=== PATIENT | female | born 1990 | race Caucasian/White ===

== ENCOUNTER 2016-12-19 19:33 | Emergency (ER) | payer MEDICAID ==
[2016-12-19 19:42] VITALS: BP 137/88; PULSE 149; RESP 16; O2SAT 98
[2016-12-19] MEDS ORDERED: Penicillin G Benzathine 1.2 Mill Unit/2 ml Syr IM STA (19:48)
--- NOTE | 2016-12-19 20:01 | ED PDOC ---
HPI: CCC, URI, Sore Throat Time Seen by Provider: 12/19/16 19:47 Chief Complaint (Nursing): ENT Problem Chief Complaint (Provider): sore thoart History Per: Patient History/Exam Limitations: no limitations Associated Symptoms: Fever, Chills, Sore Throat, Myalgias. denies: Cough, Sputum, Neck Pain, Sinus Drainage, Nasal Congestion, Nausea, Vomiting, Diarrhea Additional Complaint(s): 26yo F in Ed for eval of sore throat x 2d with fever body aches . hx of strep. no foreign travel no sick contacts. Past Medical History Reviewed: Historical Data, Nursing Documentation, Vital Signs Vital Signs: Last Vital Signs Temp 102 F H 12/19/16 19:40 Pulse 149 H 12/19/16 19:40 Resp 16 12/19/16 19:40 BP 137/88 12/19/16 19:40 Pulse Ox 98 12/19/16 20:03 - Medical History PMH: No Chronic Diseases - Family History Family History: States: Unknown Family Hx - Social History Current smoker - smoking cessation education provided: No Ex-Smoker (has not smoked in the last 12 months): No Alcohol: None Drugs: Denies - Immunization History Hx Tetanus Toxoid Vaccination: Yes Hx Influenza Vaccination: Yes Hx Pneumococcal Vaccination: Yes - Home Medications Home Medications: Ambulatory Orders Medication Instructions Recorded Ibuprofen [Motrin Tab] 600 mg PO TID #20 tab 03/16/14 Sulfamethoxazole/Trimethopri 1 tab PO BID #14 tab 03/16/14 [Bactrim Ds 800 mg-160 mg] - Allergies Allergies/Adverse Reactions: Allergies Allergy/AdvReac Type Severity Reaction Status Date / Time No Known Allergies Allergy Verified 12/19/16 19:40 Review of Systems ROS Statement: Except As Marked, All Systems Reviewed And Found Negative ENT: Positive for: Throat Pain, Throat Swelling Physical Exam - Reviewed Nursing Documentation Reviewed: Yes Vital Signs Reviewed: Yes - Physical Exam Head Exam: Positive for: ATRAUMATIC, NORMAL INSPECTION, NORMOCEPHALIC Skin: Positive for: Normal Color, Warm, Dry ENT: Positive for: Pharyngeal Erythema, Tonsillar Exudate, Tonsillar Swelling Neck: Positive for: Normal Cardiovascular/Chest: Positive for: Regular Rate, Rhythm Respiratory: Negative for: Accessory Muscle Use, Respiratory Distress Extremity: Positive for: Normal ROM Neurologic/Psych: Positive for: Alert, Oriented (x3) - ECG O2 Sat by Pulse Oximetry: 98 (RA) Pulse Ox Interpretation: Normal Medical Decision Making Medical Decision Making: Time: 20:00 Initial impression: Throat pain Initial plan: ED Urine Motrin 600 mg PO Toradol 30 mg IM Penicillin LR IM-pt with (+) [facility] Criteria for strep throat. ~ Scribe Attestation: Documented by Chanel Cabrera, acting as a scribe for MAIA Robles. Provider Scribe Attestation: All medical record entries made by the Scribe were at my direction and personally dictated by me. I have reviewed the chart and agree that the record accurately reflects my personal performance of the history, physical exam, medical decision making, and the department course for this patient. I have also personally directed, reviewed, and agree with the discharge instructions and disposition. Disposition - Clinical Impression Clinical Impression: Streptococcal sore throat - Patient ED Disposition Is Patient to be Admitted: No Counseled Patient/Family Regarding: Diagnosis, Need For Followup - Disposition Disposition: Routine/Home Disposition Time: 20:33 Condition: STABLE Instructions: Strep Throat (ED) Forms: [employer] (Dominican)
[2016-12-19 20:39] VITALS: TEMP 100.4
== END 2016-12-19 20:51 | disposition home or self-care (01) ==
LOC: H.ER 19:33
DX: J02.0 Streptococcal pharyngitis (principal)
CPT/HCPCS: 81025; 96372; 99282; J0561

== ENCOUNTER 2018-01-14 18:34 | Emergency (ER) | payer MEDICAID, OTHER ==
[2018-01-14 19:47] VITALS: BP 146/97; PULSE 100; RESP 17; TEMP 99.4; O2SAT 99
[2018-01-14] MEDS ORDERED: Dexamethasone 4 mg/1 ml IM ONE (20:23)
[2018-01-14] MEDS ORDERED: Dexamethasone 4 mg/1 ml ONE (20:39)
[2018-01-14] MEDS ORDERED: Penicillin G Benzathine 1.2 Mill Unit/2 ml Syr IM ONE (21:00)
--- NOTE | 2018-01-14 21:13 | ED PDOC ---
HPI: CCC, URI, Sore Throat Time Seen by Provider: 01/14/18 19:54 Chief Complaint (Nursing): ENT Problem Chief Complaint (Provider): ENT Problem History Per: Patient History/Exam Limitations: no limitations Onset/Duration Of Symptoms: Days (x6 days ) Current Symptoms Are (Timing): Still Present Additional Complaint(s): Evi Spears is a 27 year old female with a past medical history of recurrent strep pharyngitis, who presents to the emergency department today with severe throat pain, associated with left ear pain, onset x1 day. Patient states she began having a sore throat yesterday and took an old zithromycin and almost immediately had worsening pain. She also reports that she can not swallow and that if she is to be treated she does not want pills. Patient has been treated with penicillin IM in the past with improvement of her pain withing an hour. She denies having any fever, chills, night sweats, nasal congestion. PMD: shawn geronimo Past Medical History Reviewed: Historical Data, Nursing Documentation, Vital Signs Vital Signs: Last Vital Signs Temp 99.4 F 01/14/18 19:34 Pulse 100 H 01/14/18 19:34 Resp 17 01/14/18 19:34 BP 146/97 H 01/14/18 19:34 Pulse Ox 99 01/14/18 19:34 - Medical History PMH: No Chronic Diseases - Surgical History Surgical History: No Surg Hx - Family History Family History: States: Unknown Family Hx - Immunization History Hx Tetanus Toxoid Vaccination: Yes Hx Influenza Vaccination: Yes Hx Pneumococcal Vaccination: Yes - Home Medications Home Medications: Ambulatory Orders Medication Instructions Recorded Ibuprofen [Motrin Tab] 600 mg PO TID #20 tab 03/16/14 Sulfamethoxazole/Trimethopri 1 tab PO BID #14 tab 03/16/14 [Bactrim Ds 800 mg-160 mg] Ibuprofen [Motrin Tab] 600 mg PO Q6 PRN 7 Days tab 01/14/18 - Allergies Allergies/Adverse Reactions: Allergies Allergy/AdvReac Type Severity Reaction Status Date / Time No Known Allergies Allergy Verified 12/19/16 19:40 Review of Systems ROS Statement: Except As Marked, All Systems Reviewed And Found Negative Constitutional: Negative for: Fever, Chills, Sweats ENT: Positive for: Ear Pain, Throat Pain. Negative for: Nose Congestion Respiratory: Negative for: Cough Physical Exam - Reviewed Nursing Documentation Reviewed: Yes Vital Signs Reviewed: Yes - Physical Exam Appears: Positive for: Uncomfortable Head Exam: Positive for: ATRAUMATIC, NORMOCEPHALIC Skin: Positive for: Normal Color Eye Exam: Positive for: Normal appearance, EOMI, PERRL ENT: Positive for: Pharyngeal Erythema. Negative for: Tonsillar Exudate Cardiovascular/Chest: Positive for: Regular Rate, Rhythm. Negative for: Murmur Respiratory: Positive for: Normal Breath Sounds. Negative for: Respiratory Distress Lymphatic: Positive for: Normal Exam Neurologic/Psych: Positive for: Alert, Oriented - ECG O2 Sat by Pulse Oximetry: 99 (RA) Pulse Ox Interpretation: Normal Medical Decision Making Medical Decision Making: Initial Time: 20:17 Initial Plan: --Rapid strep --Monospot --Decadron Inj 8mg IM -------- --------- Scribe Attestation: Documented by Bart Arguello, acting as a scribe for Nabila Rogers PA-C. Provider Scribe Attestation: All medical record entries made by the Scribe were at my direction and personally dictated by me. I have reviewed the chart and agree that the record accurately reflects my personal performance of the history, physical exam, medical decision making, and the department course for this patient. I have also personally directed, reviewed, and agree with the discharge instructions and disposition. Disposition - Clinical Impression Clinical Impression: Strep pharyngitis, Infectious mononucleosis - Disposition Referrals: Shawn Geronimo MD [Medical Doctor] - Disposition Time: 22:02 Condition: IMPROVED Additional Instructions: Get lots of rest and drink fluids. Avoid contact sports as your spleen can enlarge with [place]. Ibuprofen for pain and fevers. Prescriptions: Ibuprofen [Motrin Tab] 600 mg PO Q6 PRN 7 Days tab PRN Reason: Pain, Moderate (4-7) Instructions: Strep Throat (DC), Mononucleosis (DC) Forms: [facility] (Lao), [facility] ED School/Work Excuse Print Language: STATELESS
== END 2018-01-14 22:26 | disposition home or self-care (01) ==
LOC: H.ER 18:34
DX: J02.0 Streptococcal pharyngitis (principal); B27.90 Infectious mononucleosis, unspecified without complication
CPT/HCPCS: 81025; 86308; 87430; 96372; 99282; J0561; J1100